=== PATIENT | female | born 1975 | race Caucasian/White ===

== ENCOUNTER → 2020-09-13 | Day surgery (SDC) | payer OTHER ==
[~2020-09-13] VITALS: Ht 152.4 cm; Wt 55.0 kg
[~2020-09-13] MED LIST: IBUP-1027 PO; LIDOCAINE 1%/EPI 1:100,000 20 ML VIAL. INJ ONE
[2020-09-13 12:39] VITALS: BP 106/70
--- NOTE | 2020-09-13 13:18 | PDOC1 ---
History and Physical Date of Admission Date of Admission DATE: 09/13/20 TIME: 13:16 Identification/Chief Complaint Chief Complaint Left flank mass Source Source: Patient History of Present Illness History of Present Illness 45-year-old female with complaints enlarging mass on her left flank denies any pain Past Medical History Cardiovascular: No pertinent hx Pulmonary: No pertinent hx GI: No pertinent hx Heme/Onc: No pertinent hx Hepatobiliary: No pertinent hx Psych: No pertinent hx Rheumatologic: No pertinent hx Infectious disease: Other (Lyme disease) ENT: No pertinent hx Renal/: No pertinent hx Endocrine: No pertinent hx Dermatology: No pertinent hx Past Surgical History Past Surgical History: Other (Surgery of the urinary bladder) Family History Family History: No Significant Social History Smoke: No ALCOHOL: none Drugs: None Current Medications Current Medications Current Medications Lidocaine/ Epinephrine (LIDOCAINE 1%-EPI 1:100,000 Multi-Dose) 20 ml 1X ONCE INJ ; Start 09/13/20 at 12:45; Stop 09/13/20 at 12:46; Status DC Active Scripts Active Reported Ibuprofen 400 Mg Tablet 400 Mg PO PRN Q6HRS PRN Allergies Allergies: Coded Allergies: latex (Verified Allergy, Intermediate, Rash, 09/13/20) Penicillins (Verified Allergy, Mild, RASH; OPTIC NERVE DAMAGED, 09/13/20) Physical Exam General: Alert, Oriented X3, Cooperative, No acute distress HEENT: Atraumatic, EOMI Lungs: Clear to auscultation, Normal air movement Abdomen: Normal bowel sounds, Soft, Other (4 cm mass left flank nontender no skin changes) Rectal Exam: not examined Extremities: No edema Skin: No significant lesion Neuro: Normal speech Psych/Mental Status: Mental status NL Vitals Vitals Vital Signs Date Time Temp Pulse Resp B/P (MAP) Pulse Ox O2 Delivery O2 Flow Rate FiO2 09/13/20 12:39 84 20 99 VTE Prophylaxis Ordered VTE Prophylaxis Devices: No VTE Pharmacological Prophylaxi: No Assessment/Plan Assessment/Plan Left flank subcutaneous mass plan excision under local Justifications for Admission Other Justification THEE HARDY MD Sep 13, 2020 13:18
--- NOTE | 2020-09-13 13:20 | PDOC4 ---
Operative Note Operative Note Date: September 13, 2020 at 1318 Preoperative diagnosis left flank mass Postoperative diagnosis: Same Procedure: Excision of left flank mass Surgeon: He Specimen: Left flank mass Dictation: Patient is a 45-year-old female who is 4 cm subcutaneous mass of the left flank. The procedure of excision was explained to the patient detail was benefits were also discussed including bleeding infection alternatives to this procedure were discussed with patient who seemed to understand and gave a verbal written consent to have the procedure performed. Patient was taken to the minors room placed in the right lateral decubitus position the left flank was prepped and draped usual sterile fashion using ChloraPrep. An area over the mass was injected with 1% lidocaine with epinephrine once this was anesthetized and a incision was made with a 15 blade scalpel is carried down through the subcutaneous tissue using Metzenbaum scissors to fully excise the mass which was 4 cm lipomatous mass with no extra margins taken. Mass was sent for pathology. The wound was closed in a single layer 4-0 subcuticular Monocryl Mastisol Steri- Strips and island dressing was applied. Patient tolerated procedure well was discharged home in stable condition all sponge instrument needle counts listed as correct estimated blood loss 5 mL THEE HARDY MD Sep 13, 2020 13:20
--- NOTE | 2020-09-13 13:21 | DISCH ---
DISCHARGE INSTRUCTIONS Condition on Discharge Condition on Discharge: Stable Activity After Discharge Activity Instructions for Disc: Activity as tolerated Other activity instructions: May shower in 24 hours Diet after Discharge Diet after Discharge: Regular Wound Incision Care Other wound/incision instructi: May shower in 24 hours Contacting the after DC Call your doctor for: If your condition worsens Follow-Up Follow up with: Dr. Hardy in 2 weeks THEE HARDY MD Sep 13, 2020 13:21
--- NOTE | 2020-09-16 09:11 | PATHOLOGY ---
[facility] Accession Number: [id number] . 01 Material submitted: . flank - MASS LEFT FLANK. Modifiers: left . 01 Clinical history: . MASS LEFT FLANK EXC. MASS LEFT FLANK EXCISION OF LIPOMATOUS MASS . 02 Diagnosis: Fibroadipose tissue, left flank mass, excision: - Lipoma. (JPM:pit; 09/15/2020) QTP 09/15/2020 1524 Local . 02 Electronically signed: . Edin Armijo MD, Pathologist NPI- [id number] . 01 Gross description: . Fixative: Formalin Labeled: Mass left flank Specimen received: Single segment of bright yellow lobulated tissue Dimensions: 4.8 x 4.2 x 2.5 cm External surface: Smooth to shaggy Cut surface: Bright yellow, lobulated . [employer] sections are submitted in cassette A1. (CAA; 09/14/2020) QA/QA 09/14/2020 1816 Local . 02 Pathologist provided ICD-10: D17.1 . 02 CPT . 408055 Specimen Comment: A courtesy copy of this report has been sent to [phone], [phone] Specimen Comment: [phone] Specimen Comment: Report sent to / DR BOWMAN Performed at: 01 [facility] [address], [place] [id number] MD Get Townsend MD Phone: [phone] Performed at: 02 [facility] [address] [place], [place] [id number] MD Edin Armijo MD Phone: [phone]
== END | disposition home or self-care (01) ==
LOC: SURG 12:16
PROVIDERS: ATTEND Surgery
DX: D17.1 Benign lipomatous neoplasm of skin and subcutaneous tissue of trunk (principal); F41.9 Anxiety disorder, unspecified; Z79.899 Other long term (current) drug therapy; Z98.890 Other specified postprocedural states; Z88.0 Allergy status to penicillin; Z91.040 Latex allergy status
CPT/HCPCS: 21931; 88304; J3490; 11400